=== PATIENT | female | born 1965 | race African-American/Black ===

== ENCOUNTER 2017-05-06 11:39 | Emergency (ER) | payer MEDICARE, OTHER ==
[~2017-05-06] VITALS: Ht 152.4 cm; Wt 86.8 kg
[~2017-05-06 11:39] MED LIST: ALBU17AE27 IH; ASPI81TA42 PO; COMBIH IH; DOCU250C15 PO; ESTR1TAB17 PO; GABA800T PO; HYDR-3114 PO; IBUP-2343 PO; METF850T2 PO; METH10 PO; NALT1TAB PO; PROM25 PO; SIMV10TA6 PO; TRAZ-147 PO
[2017-05-06] MEDS ORDERED: METH10TA2 PO (11:51)
[2017-05-06] MEDS ORDERED: BUPR75TA8 PO (11:51)
[2017-05-06] MEDS ORDERED: MULT1TAB69 PO (11:51)
[2017-05-06] MEDS ORDERED: VITAD1000 PO (11:51)
[2017-05-06] MEDS ORDERED: CYAN100022 SL (11:51)
[2017-05-06] MEDS ORDERED: LOSA100T29 PO (11:51)
[2017-05-06] MEDS ORDERED: CARV25TA32 PO (11:51)
[2017-05-06] MEDS ORDERED: TERB250 PO (11:51)
[2017-05-06 12:40] VITALS: BP 112/76
[2017-05-06] MEDS ORDERED: BACLOFEN 10 MG TABLET PO ONE (12:45)
== END 2017-05-06 14:04 | disposition left against medical advice (07) ==
LOC: EMS 11:39
DX: S13.4XXA Sprain of ligaments of cervical spine, initial encounter (principal); I11.0 Hypertensive heart disease with heart failure; I50.9 Heart failure, unspecified; E11.9 Type 2 diabetes mellitus without complications; F17.210 Nicotine dependence, cigarettes, uncomplicated; Z95.0 Presence of cardiac pacemaker; V49.9XXA Car occupant (driver) (passenger) injured in unspecified traffic accident, initial encounter; Y93.89 Activity, other specified; Y92.481 Parking lot as the place of occurrence of the external cause; Y99.8 Other external cause status
CPT/HCPCS: 99283

== ENCOUNTER → 2019-11-19 | Outpatient (CLI) | payer OTHER ==
[~2019-11-19] VITALS: Ht 152.4 cm; Wt 79.4 kg
[~2019-11-19] MED LIST changes: -ASPI81TA42 PO; +CARV25TA32 PO; +CHOL100018 PO; +CYAN100022 SL; -DOCU250C15 PO; -ESTR1TAB17 PO; -HYDR-3114 PO; +LOSA100T58 PO; -METF850T2 PO; -METH10 PO; +MULT1TAB69 PO; -NALT1TAB PO; -PROM25 PO; -SIMV10TA6 PO; -TRAZ-147 PO; +TRAZ-186 PO
[2019-11-19 11:42] VITALS: BP 146/78
== END | disposition home or self-care (01) ==
LOC: SRCNTR 10:30
PROVIDERS: ATTEND Internal Medicine Clinical Cardiac Electrophysiology
DX: Z48.812 Encounter for surgical aftercare following surgery on the circulatory system (principal); I11.0 Hypertensive heart disease with heart failure; I50.9 Heart failure, unspecified; E78.5 Hyperlipidemia, unspecified; E11.9 Type 2 diabetes mellitus without complications; F17.210 Nicotine dependence, cigarettes, uncomplicated; Z95.810 Presence of automatic (implantable) cardiac defibrillator; Z79.899 Other long term (current) drug therapy
CPT/HCPCS: G0463; Z7500

== ENCOUNTER 2020-11-12 07:56 | Emergency (ER) | payer OTHER ==
[~2020-11-12] VITALS: Ht 152.4 cm; Wt 72.7 kg
[2020-11-12] MEDS ORDERED: BACL10TA PO (08:09)
[2020-11-12] MEDS ORDERED: SIMV-259 PO (08:09)
[2020-11-12] MEDS ORDERED: BIOT10004 PO (08:09)
[2020-11-12] MEDS ORDERED: ASPI-1450 PO (08:09)
[2020-11-12] MEDS ORDERED: TRAZ-257 PO (08:09)
[2020-11-12] MEDS ORDERED: METF-960 PO (08:09)
[2020-11-12] MEDS ORDERED: CYAN250010 PO (08:09)
[2020-11-12 08:35] LABS: BASOPHILS % (AUTO) 0.6 % (0.0-2.0); HEMATOCRIT 38.3 % (36-46); HEMOGLOBIN 12.3 g/dL (12.0-16.0); LYMPHOCYTES # (AUTO) 0.9 K/uL (1.0-4.8); LYMPHOCYTES % (AUTO) 23.7 % (22.0-44.0); MEAN CORPUSCULAR HEMOGLOBIN 29.2 pg (26.0-34.0); MEAN CORPUSCULAR HGB CONC 32.2 G/dL (31.0-37.0); MEAN CORPUSCULAR VOLUME 91 fL (80-100); MONOCYTES # (AUTO) 0.2 K/uL (0.1-1.0); MONOCYTES % (AUTO) 5.6 % (2.0-9.0); NEUTROPHILS # (AUTO) 2.7 K/uL (1.8-7.7); NEUTROPHILS % (AUTO) 69.1 % (40.0-70.0); PLATELET COUNT (AUTO) 303 K/uL (150-450); RED BLOOD CELL COUNT(AUTO) 4.22 MIL/uL (4.00-5.20)
[2020-11-12 08:43] LABS: ANION GAP 8 mmol/L (8-16); CALCIUM, TOTAL 9.2 mg/dL (8.8-10.5); CARBON DIOXIDE 28 mmol/L (22-29); CHLORIDE 102 mmol/L (98-107); CREATININE 0.86 mg/dL (0.60-1.30); GLOMERULAR FILTR. RATE CALC > 60 mL/min (>60); GLUCOSE,RANDOM 85 mg/dL (70-110); POTASSIUM 3.5 mmol/L (3.5-5.1); SODIUM SERUM 138 mmol/L (136-145); UREA NITROGEN, BLOOD 23 mg/dL (7-18)
[2020-11-12 08:49] LABS: ALANINE AMINOTRANSFERASE 15 U/L (12-78); ALKALINE PHOSPHATASE 45 U/L (46-116); ASPARTATE AMINOTRANSFERASE 12 U/L (15-37); BILIRUBIN,TOTAL 0.3 mg/dL (0.1-1.0); CREATINE KINASE, TOTAL ONLY 46 U/L (26-192); TOTAL PROTEIN, SERUM 7.1 g/dL (6.4-8.2)
[2020-11-12 08:52] LABS: B-TYPE NATRIURETIC PEPTIDE 12 pg/mL (0-100)
[2020-11-12] MEDS ORDERED: MAGNESIUM SULFATE 2 GM/WATER 50 ML IV ONE (09:15)
[2020-11-12 09:30] VITALS: BP 124/76
[2020-11-12] MEDS ORDERED: MAGNESIUM OXIDE 400 MG TABLET PO ONE (09:45)
[2020-11-12 11:05] LABS: GLUCOSE,POINT OF CARE 129 MG/DL (70-110)
== END 2020-11-12 09:53 | disposition left against medical advice (07) ==
LOC: EMS 08:02
DX: E83.42 Hypomagnesemia (principal); F17.210 Nicotine dependence, cigarettes, uncomplicated; I11.0 Hypertensive heart disease with heart failure; I50.9 Heart failure, unspecified; E11.9 Type 2 diabetes mellitus without complications
CPT/HCPCS: 71045; 80053; 82550; 82962; 83735; 83880; 84100; 84484; 85025; 93005; 99285; J3475